=== PATIENT | female | born 1970 | race Two or more races ===

== ENCOUNTER 2019-08-01 18:10 | Emergency (ER) | payer MEDICAID ==
[~2019-08-01] VITALS: Ht 160 cm; Wt 105.2 kg
--- NOTE | 2019-08-01 18:30 | NUR ---
PT CAME IN TO THE ED C/O DIFFUSE ABDOMINAL PAIN W/ NAUSEA, BLOATING, 3 MONTHS, WORST TODAY. PT AAOX4, VSS, UNLABORED AND EVEN BREATHING W/ NO DISTRESS NOTED, AMBULATORY W/ STEADY GAIT. PT CONNECTED TO THE MONITOR AND POX.
--- NOTE | 2019-08-01 18:48 | NUR ---
urine collected and sent to lab.
[2019-08-01 19:02] LABS: BASOPHILS # (AUTO) 0.1 /CMM (0.0-0.2); BASOPHILS % (AUTO) 0.8 % (0.0-2.0); EOSINOPHILS % (AUTO) 2.8 % (0.0-6.0); HEMATOCRIT 41 % (33-45); HEMOGLOBIN 14.4 g/dL (11.5-14.8); LYMPHOCYTES # (AUTO) 2.6 /CMM (0.8-4.8); LYMPHOCYTES % (AUTO) 32.6 % (20.0-44.0); MEAN CORPUSCULAR HGB CONC 35 g/dl (31.0-36.0); MEAN CORPUSCULAR VOLUME 87 fL (82-100); MONOCYTES # (AUTO) 0.5 /CMM (0.1-1.30); MONOCYTES % (AUTO) 6.2 % (2.0-12.0); NEUTROPHILS # (AUTO) 4.5 /CMM (1.8-8.9); NEUTROPHILS % (AUTO) 57.6 % (43.0-81.0); PLATELET COUNT (AUTO) 230 /CMM (150-450); RED BLOOD CELL COUNT(AUTO) 4.75 MIL/uL (4.0-5.2); WHITE BLOOD COUNT (AUTO) 7.8 K/uL (4.3-11.0)
--- NOTE | 2019-08-01 19:12 | NUR ---
report given to Stanley BOYER for deng.
[2019-08-01 19:13] LABS: CALCIUM, SERUM 9.1 mg/dL (8.5-10.1); CREATININE 0.8 mg/dL (0.6-1.3); POTASSIUM 3.6 mmol/L (3.5-5.1)
[2019-08-01 19:18] LABS: ALBUMIN 3.8 g/dL (3.4-5.0); BILIRUBIN,DIRECT 0.1 mg/dL (0.0-0.2); BILIRUBIN,TOTAL 0.5 mg/dL (0.2-1.0); TOTAL PROTEIN, SERUM 7.5 g/dL (6.4-8.2)
[2019-08-01 19:39] LABS: APPEARANCE,URINE Clear (CLEAR); BILIRUBIN,URINE Negative (NEGATIVE); BLOOD, URINE Negative Ery/uL (NEGATIVE); COLOR,URINE Yellow (YELLOW); KETONES,URINE Negative (NEGATIVE); LEUKOCYTE ESTERASE ,URINE Negative (NEGATIVE); NITRITE, URINE Negative (NEGATIVE); PROTEIN,URINE Negative (NEGATIVE); UGLUCOSE Negative (NEGATIVE); UROBILINOGEN,URINE 0.2 EU/dL (0.2)
[2019-08-01 20:10] VITALS: BP 134/75
--- NOTE | 2019-08-01 21:24 | NUR ---
IV removed. Catheter intact and site benign. Pressure and 4x4 applied to site. No bleeding noted.Patient discharged to home in stable condition. Written and verbal after care instructions given. Patient verbalizes understanding of instruction. PT AMBULATORY WITH STEADY GAIT.
== END 2019-08-01 21:25 | disposition home or self-care (01) ==
LOC: ER 18:10
DX: K76.0 Fatty (change of) liver, not elsewhere classified (principal); D27.9 Benign neoplasm of unspecified ovary; E66.9 Obesity, unspecified; Z90.89 Acquired absence of other organs; Z68.41 Body mass index [BMI] 40.0-44.9, adult
CPT/HCPCS: 36415; 76705-TC; 76856-TC; 80048-TC; 80076-TC; 81000-TC; 83690-TC; 85025-TC

== ENCOUNTER 2021-06-09 18:11 | Emergency (ER) | payer MEDICAID ==
[~2021-06-09] VITALS: Ht 160 cm; Wt 102.1 kg
[2021-06-09 18:11] VITALS: BP 124/88
[2021-06-09] MEDS ORDERED: CEPH500C2 PO (18:44)
[2021-06-09] MEDS ORDERED: BACI3.5O23 MT (18:44)
[2021-06-09] MEDS ORDERED: IBUP-1955 PO (18:44)
--- NOTE | 2021-06-09 19:03 | NUR ---
Patient discharged to home in stable condition. Written and verbal after care instructions given. Patient verbalizes understanding of instruction.
== END 2021-06-09 19:03 | disposition home or self-care (01) ==
LOC: ER 18:14
DX: R22.0 Localized swelling, mass and lump, head (principal); L25.9 Unspecified contact dermatitis, unspecified cause

== ENCOUNTER 2022-04-15 14:45 | Emergency (ER) | payer MEDICAID ==
[~2022-04-15] VITALS: Ht 160 cm; Wt 107.0 kg
[~2022-04-15 14:45] MED LIST: BACI3.5O23 MT; CEPH500C2 PO; IBUP-1955 PO
--- NOTE | 2022-04-15 15:50 | NUR ---
PATIENT BIB SISTER C/O ABDOMINAL PAIN ON/OFF DAY 08/04 ON PS THIS MORNING. PLACED ON MONITOR AND IN HOSPITAL GOWN. SAFETY PRECAUTIONS IN PLACE. AWAITING FOR MD BLAIR
--- NOTE | 2022-04-15 16:00 | NUR ---
SEEN BY DR KEBEDE
[2022-04-15] MEDS ORDERED: LIDOCAINE VISCOUS 2% UD 15 ML UDC MM ONE (16:30)
[2022-04-15] MEDS ORDERED: ONDANSETRON HCL/PF 4 MG/2 ML VIAL IVP ONE (16:30)
[2022-04-15] MEDS ORDERED: MAG HYDROX/AL HYDROX/SIMETH 30 ML UDC PO ONE (16:30)
[2022-04-15 16:32] LABS: BASOPHILS # (AUTO) 0.1 K/uL (0.0-0.2); BASOPHILS % (AUTO) 0.9 % (0.0-2.0); EOSINOPHILS % (AUTO) 2.3 % (0.0-6.0); HEMATOCRIT 41 % (33-45); HEMOGLOBIN 14.2 g/dL (11.5-14.8); LYMPHOCYTES # (AUTO) 2.3 K/uL (0.8-4.8); LYMPHOCYTES % (AUTO) 30.5 % (20.0-44.0); MEAN CORPUSCULAR HGB CONC 35 g/dl (31.0-36.0); MEAN CORPUSCULAR VOLUME 85 fL (82-100); MONOCYTES # (AUTO) 0.6 K/uL (0.1-1.30); MONOCYTES % (AUTO) 7.6 % (2.0-12.0); NEUTROPHILS # (AUTO) 4.4 K/uL (1.8-8.9); NEUTROPHILS % (AUTO) 58.7 % (43.0-81.0); PLATELET COUNT (AUTO) 208 K/uL (150-450); RED BLOOD CELL COUNT(AUTO) 4.79 MIL/uL (4.0-5.2); WHITE BLOOD COUNT (AUTO) 7.4 K/uL (4.3-11.0)
[2022-04-15] MEDS: IV NS 0.9% 1,000 ML BAG IV ONE ×2 (16:52→17:24)
--- NOTE | 2022-04-15 17:15 | NUR ---
ACCESS ESTABLISHED L AC G#20, FLUSHES WELL
--- NOTE | 2022-04-15 17:15 | NUR ---
PATIENT REFUSED ANTI-NAUSEA MEDICATION AND PAIN MEDICATION
[2022-04-15] MEDS ORDERED: MAG HYDROX/AL HYDROX/SIMETH 30 ML UDC ONE (17:28)
[2022-04-15 17:32] LABS: CALCIUM, SERUM 9.1 mg/dL (8.5-10.1); CREATININE 0.9 mg/dL (0.6-1.3)
[2022-04-15 17:37] LABS: BILIRUBIN,DIRECT 0.1 mg/dL (0.0-0.2); BILIRUBIN,TOTAL 0.6 mg/dL (0.2-1.0); TOTAL PROTEIN, SERUM 7.6 g/dL (6.4-8.2)
[2022-04-15] MEDS ORDERED: PANT40TA2 PO (18:19)
[2022-04-15] MEDS ORDERED: ONDA4TAB11 PO (18:19)
[2022-04-15] MEDS ORDERED: MAG355OR18 PO (18:19)
[2022-04-15 18:33] VITALS: BP 120/66
--- NOTE | 2022-04-15 18:36 | NUR ---
Patient discharged to home in stable condition. Written and verbal after care instructions given. Patient verbalizes understanding of instruction.
--- NOTE | 2022-04-15 18:36 | NUR ---
IV removed. Catheter intact and site benign. Pressure and 4x4 applied to site. No bleeding noted.
== END 2022-04-15 18:36 | disposition home or self-care (01) ==
LOC: ER 14:50
DX: K29.70 Gastritis, unspecified, without bleeding (principal); Z60.2 Problems related to living alone; Z79.899 Other long term (current) drug therapy
CPT/HCPCS: 36415; 76705; 80048; 80076; 83690; 85025; 96360; 99284; J7030

== ENCOUNTER 2023-08-07 16:01 | Emergency (ER) | payer MEDICAID, OTHER ==
[~2023-08-07] VITALS: Ht 172.7 cm; Wt 84.8 kg
[~2023-08-07 16:01] MED LIST changes: +MAG355OR18 PO; +ONDA4TAB11 PO; +PANT40TA2 PO
[2023-08-07 16:58] LABS: BASOPHILS % (AUTO) 0.7 % (0.0-2.0); EOSINOPHILS # (AUTO) 0.1 K/uL (0.0-0.7); EOSINOPHILS % (AUTO) 2.3 % (0.0-6.0); HEMATOCRIT 40 % (33-45); HEMOGLOBIN 13.7 g/dL (11.5-14.8); LYMPHOCYTES # (AUTO) 2.1 K/uL (0.8-4.8); LYMPHOCYTES % (AUTO) 35.1 % (20.0-44.0); MEAN CORPUSCULAR HEMOGLOBIN 29 PG (26.0-33.0); MEAN CORPUSCULAR HGB CONC 34 g/dl (31.0-36.0); MEAN CORPUSCULAR VOLUME 86 fL (82-100); MONOCYTES # (AUTO) 0.4 K/uL (0.1-1.30); MONOCYTES % (AUTO) 6.5 % (2.0-12.0); NEUTROPHILS # (AUTO) 3.3 K/uL (1.8-8.9); NEUTROPHILS % (AUTO) 55.4 % (43.0-81.0); PLATELET COUNT (AUTO) 220 K/uL (150-450); RED BLOOD CELL COUNT(AUTO) 4.67 MIL/uL (4.0-5.2); RED CELL DISTRIBUTION WIDTH 14.7 % (11.5-15.0); WHITE BLOOD COUNT (AUTO) 5.9 K/uL (4.3-11.0)
[2023-08-07 17:06] LABS: CALCIUM, SERUM 9.1 mg/dL (8.5-10.1); CARBON DIOXIDE 25 mmol/L (21-32); CHLORIDE 104 mmol/L (98-107); CREATININE 0.8 mg/dL (0.6-1.3); GLUCOSE 82 mg/dL (74-106); POTASSIUM 3.8 mmol/L (3.5-5.1); SODIUM SERUM 138 mmol/L (136-145); UREA NITROGEN, BLOOD 11 mg/dL (7-18)
[2023-08-07 17:07] LABS: MAGNESIUM 2.2 mg/dL (1.8-2.4)
[2023-08-07 18:24] LABS: THYROID STIMULATING HORMONE 1.823 uIU/mL (0.358-3.74)
[2023-08-07 21:19] VITALS: BP 116/60; TEMP 98.5; O2SAT 100
== END 2023-08-07 21:19 | disposition home or self-care (01) ==
LOC: ER 16:25
DX: R00.2 Palpitations (principal); R20.0 Anesthesia of skin; Z60.2 Problems related to living alone
CPT/HCPCS: 99285; 70498; 93970; 71045; 93005; 70496; 85025; 80048; 83735; 36415; 84443; 84484; 70450; J7050; Q9967

== ENCOUNTER 2023-09-13 22:28 | Emergency (ER) | payer MEDICAID | END 2023-09-14 03:14 | disposition left against medical advice (07) | LOC: ER 22:31 | DX: M25.572 Pain in left ankle and joints of left foot (principal); Z53.21 Procedure and treatment not carried out due to patient leaving prior to being seen by health care provider ==

== ENCOUNTER 2024-06-15 07:59 | Emergency (ER) | payer MEDICAID, OTHER ==
[~2024-06-15] VITALS: Ht 160 cm; Wt 104.3 kg
[2024-06-15] MEDS ORDERED: KETOROLAC TROMETHAMINE 15 MG/ML VIAL ONE (08:39)
[2024-06-15] MEDS: KETOROLAC TROMETHAMINE 15 MG/ML VIAL IM ONE (08:51)
[2024-06-15 09:10] VITALS: BP 151/90; TEMP 98.5; O2SAT 98
== END 2024-06-15 09:10 | disposition home or self-care (01) ==
LOC: ER 07:59
DX: M77.31 Calcaneal spur, right foot (principal); I10 Essential (primary) hypertension; Z60.2 Problems related to living alone
CPT/HCPCS: 99283; 96372; 73650; J1885

== ENCOUNTER → 2025-06-24 | Emergency (ER) | payer MEDICAID, OTHER ==
[~2025-06-24] VITALS: Ht 160 cm; Wt 113.4 kg
[~2025-06-24] MED LIST changes: +CYCL5TAB PO; +LIDO30AD10 TP; +ONDANSETRON 4 MG TAB.RAPDIS ONE
[2025-06-24] MEDS: ONDANSETRON 4 MG TAB.RAPDIS SL ONE (13:56)
[2025-06-24 16:05] VITALS: BP 144/71; TEMP 98; O2SAT 95
== END | disposition home or self-care (01) ==
LOC: ER 13:21
DX: S46.812A Strain of other muscles, fascia and tendons at shoulder and upper arm level, left arm, initial encounter (principal); S16.1XXA Strain of muscle, fascia and tendon at neck level, initial encounter; S09.90XA Unspecified injury of head, initial encounter; I11.9 Hypertensive heart disease without heart failure; E11.9 Type 2 diabetes mellitus without complications; Z79.899 Other long term (current) drug therapy; V43.52XA Car driver injured in collision with other type car in traffic accident, initial encounter; Y93.89 Activity, other specified; Y92.410 Unspecified street and highway as the place of occurrence of the external cause; Y99.9 Unspecified external cause status
CPT/HCPCS: 70450-TC; 71045-TC; 72125-TC; 73030-TC; Q0162